=== PATIENT | male | born 1990 | race Caucasian/White ===

== ENCOUNTER 2021-04-14 08:55 | Outpatient (REF) | payer OTHER, SELFPAY ==
[2021-04-14 11:49] LABS: Alanine Aminotransferase 161 U/L (0-40); Albumin Level 4.6 g/dL (3.5-5.0); Alkaline Phosphatase 49 U/L (39-117); Anion Gap 12 (12-20); Aspartate Amino Transferase 90 U/L (5-37); Bilirubin Total 0.4 mg/dL (0.0-1.0); Blood Urea Nitrogen 9 mg/dL (9-16); Calcium 9.3 mg/dL (8.4-10.2); Carbon Dioxide 26 mmol/L (22-29); Chloride 107 mmol/L (96-108); Cholesterol 157 mg/dL; Estimated Glomerular Filt Rate > 60; Glucose Fasting 103 mg/dL (60-99); HDL Cholesterol 56 mg/dL; LDL Cholesterol Calculated 93 mg/dl; Potassium 4.3 mmol/L (3.3-5.1); Sodium 141 mmol/L (135-145); Total Protein 7.2 g/dL (6.5-8.0); Triglycerides 42 mg/dL
[2021-04-14 12:13] LABS: TSH reflex Free T4 1.13 uIU/mL (0.32-4.0)
== END 2021-04-14 08:56 | disposition home or self-care (01) ==
LOC: HO.WFDLDS 08:55
PROVIDERS: Visit Provider Family Medicine
DX: Z00.00 Encounter for general adult medical examination without abnormal findings (principal)
CPT/HCPCS: 36415; 80053; 80061; 84443

== ENCOUNTER 2021-08-16 09:30 | Outpatient (REF) | payer OTHER, SELFPAY ==
--- NOTE | ~2021-08-16 | US_ITS ---
EXAMINATION: US ABDOMEN LIMITED WITH LIVER ELASTOGRAPHY CLINICAL INFORMATION: Abnormal serum levels. COMPARISON: None. TECHNIQUE: Real-time imaging of the abdominal viscera. Noninvasive ultrasound liver fibrosis assessment is performed using Yuliya ElastPQ point quantification shear wave elastography (2D-SWE) with a C5-2 MHz transducer. Multiple elastography samples are obtained. FINDINGS: PANCREAS: Normal. The visualized pancreatic head and body are normal in appearance. The remainder of the pancreas is obscured from visualization by the overlying bowel gas. LIVER: The liver demonstrates normal size, contour and increased echogenicity. No focal lesion or intrahepatic biliary duct dilatation. The right lobe measures 16.1 cm in length. The left lobe measures 10.9 cm in length. Portal flow is away from the liver (hepatofugal). Shear wave liver elastography median stiffness is 1.58 m/s (reference: normal median stiffness is 1.3 m/s or less). IQR/median stiffness to assess sampling precision is 0.07 (reference: good quality data set is IQR/median stiffness of 0.15 or less). GALLBLADDER: Normal. The gallbladder is physiologically distended without evidence of stones, sludge, polyps, wall thickening or pericholecystic fluid. COMMON BILE DUCT: Normal in caliber measuring 0.3 cm in diameter. RIGHT KIDNEY: Normal. No hydronephrosis. No renal calculi or focal parenchymal lesions. The kidney measures 12.0 cm in maximum dimension. FREE FLUID: None. US/US abdomen henry w elastography IMPRESSION: 1. Hepatic steatosis. No focal lesion seen. 2. Liver elastography: Median liver stiffness 1.58 m/s. Findings suggestive of cACLD (ruled out). REFERENCE: Society of Radiologists in Ultrasound Liver Stiffness Thresholds (2020): LIVER STIFFNESS THRESHOLDS: *Liver Stiffness equal or less than 1.3 m/s: High probability of being normal. *Liver Stiffness less than 1.7 m/s: In the absence of other known clinical signs, rules out compensated advanced chronic liver disease. *Liver Stiffness 1.7-2.1 m/s: Suggestive of compensated advanced chronic liver disease but need further test for confirmation. *Liver Stiffness over 2.1 m/s: Rules in compensated advanced chronic liver disease. *Liver Stiffness over 2.4 m/s: Suggestive of clinically significant portal hypertension. QUALITY OF DATA SET: *IQR/Median value equal or less than 0.15 implies a quality data set. *IQR/Median value over 0.15 implies a poor quality data set. SIGNIFICANT CHANGE FROM PRIOR EXAM: Significant change if liver stiffness measurement is 10% or greater from prior exam. OTHER CONSIDERATIONS: The stage of liver fibrosis may be overestimated in the setting of acute hepatitis, liver inflammation, elevated liver function tests, hepatic vascular congestion, obstructive cholestasis, non-fasting state, and infiltrative diseases such as amyloidosis and lymphoma. In some patients with NAFLD, the liver stiffness thresholds for compensated advanced chronic liver disease may be lower. In causes other than viral hepatitis and NAFLD, liver stiffness thresholds are not well established.
== END 2021-08-16 09:31 | disposition home or self-care (01) ==
LOC: HO.US 09:30
PROVIDERS: Visit Provider Family Medicine
DX: R74.8 Abnormal levels of other serum enzymes (principal)
CPT/HCPCS: 76705; 76981

== ENCOUNTER 2022-05-08 09:30 | Outpatient (REF) | payer OTHER, SELFPAY ==
[2022-05-08 12:05] LABS: Estimated Average Glucose 103 mg/dL; Hemoglobin A1c % 5.2 %
[2022-05-08 12:23] LABS: Alanine Aminotransferase 33 U/L (0-40); Albumin Level 4.4 g/dL (3.5-5.0); Alkaline Phosphatase 49 U/L (39-117); Anion Gap 16 (12-20); Aspartate Amino Transferase 19 U/L (5-37); Bilirubin Total 0.6 mg/dL (0.0-1.0); Blood Urea Nitrogen 14 mg/dL (9-16); Calcium 9.4 mg/dL (8.4-10.2); Carbon Dioxide 24 mmol/L (22-29); Chloride 106 mmol/L (96-108); Estimated Glomerular Filt Rate > 60; Glucose Fasting 95 mg/dL (60-99); Potassium 4.3 mmol/L (3.3-5.1); Sodium 142 mmol/L (135-145)
== END 2022-05-08 09:31 | disposition home or self-care (01) ==
LOC: HO.WFDLDS 09:30
PROVIDERS: Visit Provider Family Medicine
DX: Z00.00 Encounter for general adult medical examination without abnormal findings (principal); R73.01 Impaired fasting glucose; R74.8 Abnormal levels of other serum enzymes
CPT/HCPCS: 36415; 80053; 83036

== ENCOUNTER 2022-08-08 09:48 | Outpatient (REF) | payer OTHER, SELFPAY ==
[2022-08-08 11:41] LABS: Appearance Urine Clear; Color Urine Yellow; Glucose Urine UA Negative (Negative); Leukocyte Esterase Urine Negative (Negative); Nitrite Urine Negative (Negative); PH 7.5 (5.0-9.0); Specific Gravity - Urine 1.015 (1.005-1.025); Urine Blood Negative (Negative); Urine Ketones Negative (Negative); Urine Protein Negative (Neg-Trace)
[2022-08-08 12:21] LABS: Alanine Aminotransferase 56 U/L (0-40); Albumin Level 4.1 g/dL (3.5-5.0); Alkaline Phosphatase 47 U/L (39-117); Anion Gap 12 (12-20); Aspartate Amino Transferase 27 U/L (5-37); Bilirubin Total 0.3 mg/dL (0.0-1.0); Blood Urea Nitrogen 6 mg/dL (9-16); Calcium 9.3 mg/dL (8.4-10.2); Carbon Dioxide 27 mmol/L (22-29); Chloride 107 mmol/L (96-108); Cholesterol 161 mg/dL; Estimated Glomerular Filt Rate > 60; Glucose Fasting 99 mg/dL (60-99); HDL Cholesterol 43 mg/dL; LDL Cholesterol Calculated 106 mg/dl; Potassium 4.1 mmol/L (3.3-5.1); Sodium 142 mmol/L (135-145); Total Protein 6.4 g/dL (6.5-8.0); Triglycerides 60 mg/dL
[2022-08-08 12:26] LABS: TSH reflex Free T4 1.84 uIU/mL (0.32-4.0)
[2022-08-08 12:27] LABS: Creatinine Urine 113.18 mg/dL; Microalbum/Creatinine Ratio Ur 5.3 ug/mg cr
[2022-08-08 12:31] LABS: Estimated Average Glucose 103 mg/dL; Hemoglobin A1c % 5.2 %
== END 2022-08-08 09:49 | disposition home or self-care (01) ==
LOC: HO.WFDLDS 09:48
PROVIDERS: Visit Provider Family Medicine
DX: Z00.00 Encounter for general adult medical examination without abnormal findings (principal); R73.01 Impaired fasting glucose; I10 Essential (primary) hypertension
CPT/HCPCS: 36415; 80053; 80061; 81003; 82043; 83036; 84443

== ENCOUNTER 2022-12-31 08:19 | Outpatient (REF) | payer OTHER, SELFPAY ==
[2022-12-31 11:29] LABS: Alanine Aminotransferase 44 U/L (0-40); Albumin Level 4.2 g/dL (3.5-5.0); Alkaline Phosphatase 49 U/L (39-117); Anion Gap 13 (12-20); Aspartate Amino Transferase 23 U/L (5-37); Bilirubin Total 0.6 mg/dL (0.0-1.0); Blood Urea Nitrogen 13 mg/dL (9-16); Calcium 9.3 mg/dL (8.4-10.2); Carbon Dioxide 24 mmol/L (22-29); Chloride 107 mmol/L (96-108); Cholesterol 168 mg/dL; Estimated Glomerular Filt Rate > 60; Glucose Fasting 108 mg/dL (60-99); HDL Cholesterol 48 mg/dL; LDL Cholesterol Calculated 104 mg/dl; Potassium 4.3 mmol/L (3.3-5.1); Sodium 140 mmol/L (135-145); Total Protein 6.5 g/dL (6.5-8.0); Triglycerides 82 mg/dL
[2022-12-31 11:35] LABS: Appearance Urine Clear; Color Urine Yellow; Glucose Urine UA Negative (Negative); Leukocyte Esterase Urine Negative (Negative); Nitrite Urine Negative (Negative); PH 6.5 (5.0-9.0); Urine Blood Negative (Negative); Urine Ketones Negative (Negative); Urine Protein Negative (Neg-Trace)
[2022-12-31 11:45] LABS: TSH reflex Free T4 0.98 uIU/mL (0.32-4.0)
[2022-12-31 12:11] LABS: Creatinine Urine 163.48 mg/dL; Microalbum/Creatinine Ratio Ur 5.5 ug/mg cr
== END 2022-12-31 08:20 | disposition home or self-care (01) ==
LOC: HO.WFDLDS 08:19
PROVIDERS: Visit Provider Family Medicine
DX: Z00.00 Encounter for general adult medical examination without abnormal findings (principal); I10 Essential (primary) hypertension
CPT/HCPCS: 36415; 80053; 80061; 81003; 82043; 84443

== ENCOUNTER 2023-04-08 08:46 | Outpatient (AMB) | payer OTHER, SELFPAY ==
[2023-04-08 08:50] VITALS: BP 112/68; PULSE 56; RESP 14; TEMP 36.6; O2SAT 96; BMI 33.7
--- NOTE | 2023-04-08 08:50 | MHC.PC.OV ---
Vital Signs 04/08/23 08:50 Height 5 ft 9 in Weight 228 lb 8 oz BMI 33.7 BP 112/68 Blood Pressure Location Lt brachial Position Sitting Respiration 14 Pulse 56 Pulse Source Pulse Oximeter Temp 97.9 F Temp Source Temporal Artery Scan Pulse Oximetry (%) 96 Oxygen Delivery Method Room Air Intake Visit Reasons: f/u ADHD Intake Note: Patient reports he has been taking Adderall Xr 20mg daily since he was a child and experiences no side effects. Patients reports talking about his left shoulder at previous visits and would like to discuss this today. Director Learning And Development Required: No Accompanied by: Self / Same As Patient Allergies No Known Allergies Allergy (Verified 04/08/23 08:52) Tobacco use date assessed: 04/08/23 Dental Screening Did you have a dental visit in the last 12 months?: No Did you have a dental problem in the last 6 months where you did not have access to dental care?: No Was dental information given to patient?: Patient has dentist HPI f/u ADHD HPI Details 32 y/o male presents to f/u ADHD and also elevated fasting blood sugars. He is on Adderall 20mg once a day. He denies any increased anxiety/difficulty sleeping/appetite issues. He reports medication has been working well. Pt has ongoing complaints of L shoulder pain. [facility] Medical History History of appendicitis Social History Housing: House Patient Tobacco Use Status: Never used Tobacco e-Cigarette/Vaping Use: Never Used Second Hand Smoke Exposure: No service: No Current occupational status: employed Current occupational exposures/hazards: No Cognitive needs: No Hearing needs: No Vision needs: No Questionnaire Thrive Questionnaire Date Thrive assessed: 08/08/22 HUMPHREY-7 AMB Questionnaire HUMPHREY-7 Date HUMPHREY - 7 assessed: 08/08/22 Source: Developed by Drs. Fahad Koch, Heather Montaño, Torres Wu and colleagues, with an educational jose maria from [employer]. Review of Systems Const Denies chills, Denies fatigue, Denies fever(s), Denies headache(s) and Denies weakness ENT Denies dizziness and Denies headache(s) Card Denies dyspnea Resp Denies cough, Denies dyspnea, Denies wheezing and Denies other (shortness of breath) Musc Details: L shoulder pain Denies numbness and Denies tingling Neuro Denies dizziness, Denies headache(s), Denies numbness, Denies tingling and Denies weakness Psych Denies anxiety and Denies depression Endo Denies fatigue Aller/Immun Denies wheezing Physical exam (Primary Care) Vital Signs: Last Vital Signs Temp 97.9 F 04/08/23 08:50 Pulse 56 04/08/23 08:50 Resp 14 04/08/23 08:50 BP 112/68 04/08/23 08:50 Pulse Ox 96 04/08/23 08:50 Oxygen Delivery Method Room Air 04/08/23 08:50 BMI result Body Mass Index 33.7 Tobacco/Smoking Status: Tobacco use Status Tobacco use date assessed 04/08/23 04/08/23 09:00 Patient Tobacco Use Status Never used Tobacco 04/08/23 09:00 e-Cigarette/Vaping Use Never Used 04/08/23 09:00 Thrive Assessment: Date of Thrive Assessment Date Thrive assessed 08/08/22 04/08/23 09:00 Const General: well developed; No acute distress Nutritional Appearance: well nourished Orientation/consciousness: patient oriented x3 HENMT Head: Yes normocephalic and Yes atraumatic Eyes General: appearance normal, both eyes and all related structures Pupils: Equal, round and reactive pupils present EOM: EOMs intact bilaterally Resp Effort & Inspection: normal respiratory effort Neuro General: patient oriented x3 and gait normal Cranial nerves: Yes Equal, round and reactive pupils present Psych Affect: normal affect Results AMB Hemoglobin A1c AMB Hemoglobin A1c 5.0 % Last Edit by Adore Farris on 04/08/23 09:41 Results Reviewed Results Reviewed: Laboratory Last Values Hgb A1c (Clinic) 5.0 % (4.0-6.0) 04/08/23 09:40 Assessment and Plan Assessment & Plan (1) ADD (attention deficit disorder): Code(s): F98.8 - Other specified behavioral and emotional disorders with onset usually occurring in childhood and adolescence Plan: Medication is efficacious and is not causing any adverse effects such as appetite, sleep or anxiety problems. Continue current medication (2) Elevated fasting glucose: Code(s): R73.01 - Impaired fasting glucose Plan: Mildly elevated fasting blood sugars though his A1c levels have been within normal range. A1c today 5.0%; normal range and improved from prior Updated patient. We can follow periodically (3) Shoulder pain: Code(s): M25.519 - Pain in unspecified shoulder Plan: Ongoing left shoulder pain. Check x-ray Trial meloxicam Referred to physical therapy If not improving would refer to ortho Orders: Orders PT Evaluation and Treatment Today M25.519 - Pain in unspecified shoulder XR shoulder LT min 2V Today M25.519 - Pain in unspecified shoulder Medications: New meloxicam 15 mg PO DAILY 30 tabs 2RF 30 days M25.519 - Pain in unspecified shoulder Refilled dextroamphetamine-amphetamine 20 mg ER (Adderall XR) [facility] verified. Partial refill upon request. 20 mg PO QAM 30 caps 0RF 30 days F98.8 - Other specified behavioral and emotional disorders with onset usually occurring in childhood and adolescence Coding Level of Care Code Est Pt Level 4 (77787) Diagnoses ADD (attention deficit disorder) F98.8 Elevated fasting glucose R73.01 Shoulder pain M25.519
== END 2023-04-08 09:33 | disposition home or self-care (01) ==
PROVIDERS: PCP Family Medicine; Visit Provider Family Medicine
DX: F98.8 Other specified behavioral and emotional disorders with onset usually occurring in childhood and adolescence (principal); R73.01 Impaired fasting glucose; M25.519 Pain in unspecified shoulder
CPT/HCPCS: 99214

== ENCOUNTER 2023-08-21 14:00 | Outpatient (RCR) | payer OTHER, SELFPAY ==
--- NOTE | 2023-07-24 15:14 | MHC.PT.EP ---
[facility] [place] Office [place] Office [place] Office [address] Pradip Martin [address] [phone] F: [phone] F: [phone] F: [phone] F: [phone] Physical Therapy Plan of Care Date of Evaluation: 07/24/23 Date of Surgery: NA Diagnosis: L SHOULDER PAIN Assessment: Pt IS 33 YO M REFERRED TO PT FROM DR ZAMORA WITH L SHLDER PAIN OF INSIDIOUS ONSET (8-10 MONTH DURATION). PRESENTS WITH SLIGHT DECREASE IN L SHLDER ROM WITH SPOME LIMITED STRENGTH AND +MOD IMPINGEMENT SIGN, TTP L AC JT. Pt WITH FWD HEAD, ROUND SHLDERS, ANT HUMERUS B (TIGHT PECS). SHOULD BENEFIT FROM PT TO ADDRESS THESE ISSUES Frequency and Duration: The patient will be seen 2X/WK X 2 WKS THEN 1X/WK X 2 WEEKS Short Term Goals: 1. INCREASED POSTURE AWARENESS AND AWARENESS SHLDER CARE 2. IMPROVED SLEEP [facility] Goals: 1. I HEP WITH DC EX PLAN (RETURN TO EXERCISE AT GYM/HOME GYM WITH LESS PAIN) 2. DECREASED L SHLDER PAIN AT LEAST 50% WITH ADLS 3. INCREASE L SHLDER FLEX AND ER BY 5 DEGREES Treatment Plan: Modalities to reduce pain, spasms and effusion. Manual therapy to restore motion and function. Therapeutic exercise to improve strength and flexibility. Neuromuscular re-education for posture and balance. Therapeutic activities to return to functional activities of daily living. Electronically signed by: SEYMOUR WHITEHEAD PT Please sign and return to therapist. Thank you for your referral.
--- NOTE | 2023-08-21 15:27 | MHC.PT.DC ---
[facility] [place] Office [place] Office [place] Office [address] Pradip Martin 140 [facility] [phone] F: [phone] F: [phone] F: [phone] F: [phone] Physical Therapy Discharge Report Diagnosis: L SHOULDER PAIN Date of Surgery: NA Date of Evaluation: 07/24/23 Date of Discharge: 08/21/23 Treatments to Date: 7 Cancellations to Date: No Shows to Date: Discharge Status: Improved Function Independent with HEP Patient Elected to Stop Discharge Summary: HAS MET MOST PT GOALS Electronically signed by: SEYMOUR WHITEHEAD PT Please sign and return to therapist. Thank you for your referral.
== END 2023-09-03 16:10 | disposition home or self-care (01) ==
LOC: HO.PTWFD 14:00
PROVIDERS: PCP Family Medicine; Visit Provider Family Medicine
DX: M25.519 Pain in unspecified shoulder (principal)
CPT/HCPCS: 97110; 97140; 97150; 97161

== ENCOUNTER 2024-01-09 08:33 | Outpatient (AMB) | payer OTHER, SELFPAY ==
[2024-01-09 08:36] VITALS: BP 122/80; PULSE 58; RESP 14; TEMP 36.5; O2SAT 99; BMI 34.0
--- NOTE | 2024-01-09 08:36 | MHC.PC.OV ---
Vital Signs 01/09/24 08:36 Height 5 ft 9 in Weight 230 lb 6 oz BMI 34.0 BP 122/80 Blood Pressure Location Rt brachial Position Sitting Respiration 14 Pulse 58 Pulse Source Pulse Oximeter Temp 97.7 F Temp Source Temporal Artery Scan Pulse Oximetry (%) 99 Oxygen Delivery Method Room Air Intake Visit Reasons: CPE Alteration Inspector Required: No Accompanied by: Self / Same As Patient Allergies No Known Allergies Allergy (Verified 01/09/24 08:42) Tobacco use date assessed: 01/09/24 Dental Screening Dental Screen Date: 01/09/24 Did you have a dental visit in the last 12 months?: Yes Did you have a dental problem in the last 6 months where you did not have access to dental care?: No Was dental information given to patient?: Patient has dentist HPI CPE HPI Details Patient?presents?for?complete?physical?exam No?recent?labs?to?review. History?of?elevated?fasting?blood?sugars?though?A1c?has?been?in?normal?range. Last?A1c?5.0%?in?March. Now?A1c?is?5.5%. Patient?notes?some?decrease?in?libido. No?other?complaints Tries?to?eat?healthy?diet. Getting?regular?exercise. [facility] Medical History (Updated 01/09/24 @ 09:12 by Mihai Gutierrez MD) History of appendicitis Surgical History (Updated 01/09/24 @ 08:44 by MADISYN Renee) No pertinent past surgical history Social History Housing: House Patient Tobacco Use Status: Never used Tobacco e-Cigarette/Vaping Use: Never Used Second Hand Smoke Exposure: No service: No Current occupational status: employed Current occupation: optical advisor Current occupational exposures/hazards: No Cognitive needs: No Hearing needs: No Vision needs: No Questionnaire PHQ-9 Over the last 2 weeks, how often have you been bothered by any of the following problems? 1. Little interest or pleasure in doing things: not at all 2. Feeling down, depressed, or hopeless: not at all 3. Trouble falling or staying asleep, or sleeping too much: not at all 4. Feeling tired or having little energy: not at all 5. Poor appetite or overeating: not at all 6. Feeling bad about yourself - or that you are a failure or have let yourself or your family down: not at all 7. Trouble concentrating on things, such as reading the newspaper or watching television: not at all 8. Moving or speaking so slowly that other people could have noticed. Or the opposite - being so fidgety or restless that you have been moving around a lot more than usual: not at all 9. Thoughts that you would be better off or of hurting yourself in some way: not at all Total score: 0 Depression Screening Interpretation: Negative Depression Screening Done: Yes 49478 - PHQ-9 Billing: Yes Source: Developed by Drs. Fahad Koch, Torres Segura and colleagues, with an educational jose maria from [employer]. Thrive Questionnaire Date Thrive assessed: 08/08/22 AUDIT C Alcohol Use Questionnaire (AUDIT-C) 1. How often do you have a drink containing alcohol?: 2-4 times a month 2. How many drinks containing alcohol do you have on a typical day when you are drinking?: 1 or 2 3. How often do you have six or more drinks on one occasion?: Never Total Score: 2 HUMPHREY-7 AMB Questionnaire HUMPHREY-7 Date HUMPHREY - 7 assessed: 01/09/24 Feeling nervous, anxious, or on edge: 0 = Not at all Not being able to stop or control worryin = Not at all Worrying too much about different things: 0 = Not at all Trouble relaxin = Not at all Being so restless that it is hard to sit still: 0 = Not at all Becoming easily annoyed or irritable: 0 = Not at all Feeling afraid as if something awful might happen: 0 = Not at all Total HUMPHREY-7 score (0-4 normal; 5-9 mild; 10-14 moderate; 15-21 severe): 0 Source: Developed by Drs. Fahad Koch, Torres Segura and colleagues, with an educational jose maria from [employer]. HUMPHREY-7 Assessment Billing HUMPHREY-7 Assessment Tool: HUMPHREY-7 Assessment 92187 Review of Systems Const Details: Review of Systems Const Denies?chills,?Denies?fatigue,?Denies?fever(s),?Denies?headache(s) and?Denies?weakness Eyes Denies?change in vision ENT Denies?dizziness,?Denies?headache(s),?Denies?hearing loss,?Denies?nasal congestion,?Denies?sinus pain,?Denies?sinus pressure and?Denies?sore throat Card Denies?chest pain,?Denies?lightheadedness,?Denies?dyspnea and?Denies?other (palpitations) Resp Denies?cough,?Denies?dyspnea and?Denies?wheezing GI Denies?abdominal pain,?Denies?melena,?Denies?hematochezia,?Denies?change in bowel habits,?Denies?dyspepsia and?Denies?nausea Denies?hematuria and?Denies?dysuria Musc Denies?abnormal gait,?Denies?myalgias,?Denies?arthralgias,?Denies?numbness and?Denies?tingling Skin/Breast Denies?rash,?Denies?unusual bruising and?Denies?wounds Neuro Denies?abnormal gait,?Denies?dizziness,?Denies?headache(s),?Denies?memory loss,?Denies?numbness,?Denies?Sensory deficit (Neuro),?Denies?tingling and?Denies?weakness Psych Denies?anxiety,?Denies?depression and?Denies?memory loss Endo Denies?cold intolerance,?Denies?fatigue,?Denies?heat intolerance,?Denies?polydipsia and?Denies?polyuria Colton/Lymph Denies?easy bleeding and?Denies?easy bruising Aller/Immun Denies?wheezing Physical exam (Primary Care) Vital Signs: Last Vital Signs Temp 97.7 F 01/09/24 08:36 Pulse 58 01/09/24 08:36 Resp 14 01/09/24 08:36 BP 122/80 01/09/24 08:36 Pulse Ox 99 01/09/24 08:36 Oxygen Delivery Method Room Air 01/09/24 08:36 BMI result Body Mass Index 34.0 Tobacco/Smoking Status: Tobacco use Status Tobacco use date assessed 01/09/24 01/09/24 08:46 Patient Tobacco Use Status Never used Tobacco 01/09/24 08:46 e-Cigarette/Vaping Use Never Used 01/09/24 08:46 PHQ-9: PHQ-9 Score PHQ-9: Total score 0 01/09/24 08:46 Depression Screening Interpretation: Negative Thrive Assessment: Date of Thrive Assessment Date Thrive assessed 08/08/22 01/09/24 08:46 Const Other: Physical Exam Const General:?no acute distress, well developed, alert and awake Nutritional Appearance:?well nourished Orientation/consciousness:?patient oriented x3 HENMT Head:?Yes?normocephalic and?Yes?atraumatic Ears:?hearing grossly normal bilaterally and TM's normal bilaterally General nose exam:?Normal external nose present and Normal nares present Mouth:?Normal oral and palatal mucosa present and moist mucous membranes Teeth and gingiva:?dentition normal Throat:?Yes?posterior oropharynx normal Eyes Pupils:?Equal, round and reactive pupils present and Pupil accommodation reflex normal EOM:?EOMs intact bilaterally Neck Neck:?Yes?normal visual inspection,?Yes?no lymphadenopathy and?Yes?trachea midline Thyroid:?Thyroid normal Carotids:?no bruits Lymphatic:?no lymphadenopathy noted Chest Chest palpation & inspection:?normal inspection of the chest Resp Effort & Inspection:?normal respiratory effort Auscultation:?clear to auscultation bilaterally Cardio Rate:?regular rate Rhythm:?regular rhythm Heart sounds:?S1 normal heart sound present, S2 normal heart sound present, no gallops, no murmurs and no rubs Bruits:?no abdominal aortic bruits and no carotid bruits GI Palpation (GI):?No?Abdominal aortic bruit present, Soft to palpation, nontender, No hepatosplenomegaly present and?No?Rebound tenderness present Auscultation:?normal bowel sounds General:?Yes?no CVA tenderness Back/Spine/Pelvis Back:?no CVA tenderness Cervical Spine:?cervical ROM normal and?No?Cervical spine tenderness Thoracic/Lumbar Spine:?thoraco-lumbar ROM normal,?No?pain with thoraco-lumbar ROM,?No?thoracic spinal tenderness and?No?lumbar spinal tenderness Skin Lesions:?no lesions Rashes:?no rashes Trauma:?no lacerations or abrasions Wounds:?no wounds Nails:?normal Neuro General:?patient oriented x3, gait normal and CN's II-XI intact bilaterally Cranial nerves:?Yes?Equal, round and reactive pupils present Cognition (Neuro):?normal cognition Gait exam (Neuro):?Normal gait present Motor exam (neuro):?5/5 motor strength present throughout Sensory Exam:?No?Sensory deficit (Neuro) Deep tendon reflexes (DTR's):?Right patellar reflex intensity grade:?2+ and?Left patellar reflex intensity grade:?2+ Extrem General:?Yes?normal to inspection and?No?edema Psych Appearance:?grossly normal Affect:?normal affect Attitude:?cooperative Thought process:?Normal thought process present Results AMB Hemoglobin A1c AMB Hemoglobin A1c 5.5 % Last Edit by MADISYN Renee on 01/09/24 08:58 Results Reviewed Results Reviewed: Laboratory Last Values Hgb A1c (Clinic) 5.5 % (4.0-6.0) 01/09/24 08:58 Assessment and Plan Assessment & Plan (1) Adult general medical exam: Code(s): Z00.00 - Encounter for general adult medical examination without abnormal findings Plan: 33-year-old?male?presents?for?complete?physical?exam Encouraged?some?weight?loss?with?healthy?diet,?active?lifestyle?and?plenty?of?exercise (2) Elevated fasting glucose: Code(s): R73.01 - Impaired fasting glucose Plan: A1c?climbed?to?5.5%;?top?of?normal?range Encouraged?a?diet?lower?in?sugars?and?starches,?weight?loss?and?exercise (3) Decreased libido: Code(s): R68.82 - Decreased libido Plan: Checking?testosterone Orders: Orders AMB Hemoglobin A1c Today R73.01 - Impaired fasting glucose Comprehensive [place]. Panel Fast Today Z00.00 - Encounter for general adult medical examination without abnormal findings Microalbumin, Random (w Creat) Today I10 - Essential (primary) hypertension UA and rflx microscopic Today Z00.00 - Encounter for general adult medical examination without abnormal findings TSH reflex Free T4 Today Z00.00 - Encounter for general adult medical examination without abnormal findings Testosterone, Free/Total Today R68.82 - Decreased libido Complete Blood Count Auto Diff Today Z00.00 - Encounter for general adult medical examination without abnormal findings Lipid Panel Today Z00.00 - Encounter for general adult medical examination without abnormal findings Coding Level of Care Code New Pt Prev Care 18-39yr([id number] Diagnoses Adult general medical exam Z00.00 Elevated fasting glucose R73.01 Decreased libido R68.82 Additional Codes HUMPHREY-7 Assessment Billing - HUMPHREY-7 Assessment Tool: HUMPHREY-7 Assessment 68030 ([id number])
== END 2024-01-09 09:09 | disposition home or self-care (01) ==
PROVIDERS: PCP Family Medicine; Visit Provider Family Medicine
DX: Z00.00 Encounter for general adult medical examination without abnormal findings (principal); R73.01 Impaired fasting glucose; R68.82 Decreased libido
CPT/HCPCS: 83036; 99395

== ENCOUNTER 2024-02-04 09:55 | Outpatient (REF) | payer OTHER, SELFPAY ==
[2024-02-04 11:28] LABS: MANUAL DIFF FLAG NO
[2024-02-04 11:37] LABS: Appearance Urine Clear; Color Urine Yellow; Glucose Urine UA Negative (Negative); Leukocyte Esterase Urine Negative (Negative); Nitrite Urine Negative (Negative); Urine Blood Negative (Negative); Urine Ketones Negative (Negative); Urine Protein Negative (Neg-Trace)
[2024-02-04 11:39] LABS: Basophils Percent Auto 0.7 % (0-2); Eosinophils Absolute Auto 0.2 X10*3/uL (0.0-0.4); Eosinophils Percent Auto 2.6 % (0-4); Hematocrit 44.1 % (42.0-52.0); Hemoglobin 15.1 g/dl (14.0-18.0); Imm Gran Abs Auto 0.02 X10*3/uL (0.00-0.03); Imm Gran Pct Auto 0.3 % (0.0-0.4); Lymphocytes Absolute Auto 1.7 X10*3/uL (1.2-4.9); Lymphocytes Percent Auto 26.9 % (20-40); Mean Corpuscular HGB Conc 34.2 g/dl (31.0-36.0); Mean Corpuscular Hemoglobin 30.1 pg (27.0-33.0); Mean Platelet Volume 10.3 fL (9.4-12.4); Monocytes Absolute Auto 0.8 X10*3/uL (0.1-1.2); Monocytes Percent Auto 12.4 % (2-11); Neutrophils Absolute Auto 3.5 x10*3/uL (2.0-8.3); Neutrophils Percent Auto 57.1 % (45-73); Platelet Count 313 X10*3/uL (160-400); Red Blood Count 5.01 X10*6/uL (4.60-5.80); Red Cell Distribution Width 12.6 % (11.0-16.0); White Blood Count 6.1 X10*3/uL (4.8-10.8)
[2024-02-04 12:09] LABS: Creatinine Urine 121.55 mg/dL; Microalbum/Creatinine Ratio Ur 5.7 ug/mg cr (<30)
[2024-02-04 12:11] LABS: Alanine Aminotransferase 55 U/L (0-40); Albumin Level 4.4 g/dL (3.5-5.0); Alkaline Phosphatase 49 U/L (39-117); Anion Gap 14 (12-20); Aspartate Amino Transferase 22 U/L (5-37); Bilirubin Total 0.6 mg/dL (0.0-1.0); Blood Urea Nitrogen 15 mg/dL (9-16); Calcium 9.7 mg/dL (8.4-10.2); Carbon Dioxide 25 mmol/L (22-29); Chloride 106 mmol/L (96-108); Cholesterol 191 mg/dL (<200); Estimated Glomerular Filt Rate > 60; Glucose Fasting 93 mg/dL (60-99); HDL Cholesterol 48 mg/dL (>40); LDL Cholesterol Calculated 115 mg/dL (<100); Potassium 3.7 mmol/L (3.3-5.1); Sodium 141 mmol/L (135-145); Total Protein 7.1 g/dL (6.5-8.0); Triglycerides 140 mg/dL (<150)
[2024-02-04 12:29] LABS: TSH reflex Free T4 1.13 uIU/mL (0.32-4.0)
[2024-02-08 15:52] LABS: Testosterone, Free 71.2 pg/mL (35.0-155.0); Testosterone, Total 331 ng/dL (250-1100)
== END 2024-02-04 09:56 | disposition home or self-care (01) ==
LOC: HO.WFDLDS 09:55
PROVIDERS: Visit Provider Family Medicine
DX: Z00.00 Encounter for general adult medical examination without abnormal findings (principal); I10 Essential (primary) hypertension; R68.82 Decreased libido
CPT/HCPCS: 36415; 80053; 80061; 81003; 82043; 82570; 84402; 84403; 84443; 85025